=== PATIENT | female | born 1945 | race Caucasian/White ===

== ENCOUNTER 2016-06-22 21:01 | Emergency (ER) | payer OTHER ==
--- NOTE | ~2016-06-22 | CT71 ---
[facility] A Service of [facility] RADIOLOGY TEXT RESULTS PATIENT: HERMANN LAWRENCE LOCATION: [facility] : 43 UNIT #: [id number] AGE: [address]: Silvio Green SEX: F ORDER DR: [id number] [facility] [address] [place], [place] [address] [id number] E MR#: [id number] Acc #: [id number] NAME: HERMANN LAWRENCE. : 1945 SEX: F STUDY DATE/TIME: 06/22/2016 20:32 UNIT: [facility] ROOM: STUDY DESCRIPTION: CT Head Wo Contrast Attending Physician: Silvio Green P.A.-C. Ordering Physician: Silvio Green P.A.-C. Primary Care Physician: Obi Castellanos MEDICAL IMAGING REPORT This report is preliminary unless electronic signature is present EXAM CT brain without contrast TECHNIQUE This CT exam was performed with one or more of the following radiation dose reduction techniques: automatic exposure control, adjustment of mA and/or kV according to patient size, and iterative reconstruction. HISTORY Lightheaded and dizzy for [address] brain without contrast demonstrates no intracranial hemorrhage, mass or edema. Moderate anterior bifrontal cortical atrophy. No midline shift, ventricular dilatation or extraaxial fluid collection. IMPRESSION No acute findings. Dictated by... Demario Barlow M.D. THIS IS AN ELECTRONICALLY VERIFIED REPORT Demario Barlow M.D. at 06/23/2016 3:58 PM TIANA/kell TD: 06/23/2016 08:16 JOB #: [id number] MEDICAL IMAGING REPORT Page 1 of 1 COPY
[~2016-06-22 21:01] MED LIST: AMOXICILLIN; ANTIVERT PO; AUGMENTIN PO; CATAFLAM50 MG PO; DIAZEPAM PO; DIAZEPAM10 MG PO; DICLOFENAC PO; FLEXERIL PO; FLEXERIL10 M1 PO; FLEXERIL10 MG PO; KLONOPIN PO; LEVAQUIN PO; LORTAB 5/500 TA1 TA1 PO; MUSCLE RELAXER; SYNTHROID; SYNTHROID PO; SYNTHROID0.05 MG; ULTRAM PO; VICODIN 5/500 T1 TAB PO; VICODIN PO
== END 2016-06-22 21:42 | disposition home or self-care (01) ==
LOC: CFTX 21:01
DX: J32.9 Chronic sinusitis, unspecified (principal); Z88.8 Allergy status to other drugs, medicaments and biological substances
CPT/HCPCS: 70450; 99284

== ENCOUNTER 2016-07-22 17:33 | Emergency (ER) | payer OTHER | END 2016-07-22 18:36 | disposition home or self-care (01) | LOC: CFTX 17:33 | DX: H61.21 Impacted cerumen, right ear (principal); E07.9 Disorder of thyroid, unspecified; F32.9 Major depressive disorder, single episode, unspecified; Z88.8 Allergy status to other drugs, medicaments and biological substances | CPT/HCPCS: 69209; 99283 ==

== ENCOUNTER 2016-09-12 21:54 | Emergency (ER) | payer OTHER ==
--- NOTE | ~2016-09-12 | CT71 ---
[facility] A Service of [facility] RADIOLOGY TEXT RESULTS PATIENT: HERMANN LAWRENCE LOCATION: [facility] : 43 UNIT #: [id number] AGE: [address]: Adiel Menjivar MD SEX: F ORDER DR: [id number] [facility] [address] [place], [place] [address] [id number] E MR#: [id number] Acc #: [id number] NAME: HERMANN LAWRENCE. : 1945 SEX: F STUDY DATE/TIME: 09/12/2016 UNIT: [facility] ROOM: STUDY DESCRIPTION: CT Head Wo Contrast Attending Physician: Adiel Menjivar M.D. Ordering Physician: Adiel Menjivar M.D. Primary Care Physician: [facility] MEDICAL IMAGING REPORT This report is preliminary unless electronic signature is present EXAM Head CT 09/12/2032 INDICATIONS Numbness in the face since 6 o'clock this evening. Difficulty concentrating. Facial drooping. FINDINGS Axial images were obtained from base to vertex without contrast. Comparison made with 06/22/2016. The CT exam was performed with one or more of the following radiation dose reduction techniques: automatic exposure control, adjustment of mA and/or kV according to patient size, and iterative reconstruction. There is generalized atrophy. Ventricular size and configuration appears stable. No acute infarct or hemorrhage is seen. There are no masses. No skull fracture. Patient appears to have an empty sella, unchanged. IMPRESSION No acute abnormalities. No change from prior. Dictated by... Tono Sellers Jr., M.D. THIS IS AN ELECTRONICALLY VERIFIED REPORT Tono Sellers Jr., M.D. at 09/13/2016 9:23 PM CHARLESK/abimael TD: 09/13/2016 08:08 [facility] A Service of [facility] RADIOLOGY TEXT RESULTS PATIENT: HERMANN LAWRENCE LOCATION: [facility] : 43 UNIT #: [id number] AGE: [address]: Adiel Menjivar MD SEX: F ORDER DR: JOB #: [id number] MEDICAL IMAGING REPORT Page 1 of 1 COPY
== END 2016-09-12 23:29 | disposition home or self-care (01) ==
LOC: CED 21:54
DX: J32.9 Chronic sinusitis, unspecified (principal); R20.2 Paresthesia of skin; R41.0 Disorientation, unspecified; E03.9 Hypothyroidism, unspecified; Z88.8 Allergy status to other drugs, medicaments and biological substances
CPT/HCPCS: 36415; 70450; 99283